=== PATIENT | male | born 2000 | race Caucasian/White ===

== ENCOUNTER 2022-06-03 08:31 | Emergency (ER) | payer OTHER, SELFPAY ==
[2022-06-03 08:38] VITALS: PULSE 80; RESP 18; TEMP 36.6; O2SAT 99; BMI 25.8
--- NOTE | 2022-06-03 09:08 | ED.PSYCH ---
HPI - Psych General Chief Complaint: Psychiatric Symptoms Stated Complaint: insomnia/mental health Time Seen by Provider: 06/03/22 08:50 Source: patient Mode of arrival: Ambulatory Limitations: no limitations History of Present Illness HPI Narrative: This is a 21-year-old male with history of untreated anxiety/depression, insomnia and chronic back pain. Patient states he has had chronic issues for some time [place] that is supposed to be an introductory course to help with mental health, he has tried to follow up with his primary care but they are on maternity leave and he has been told it will be a couple months before he can have any sort of 1 on 1 counseling. Patient states he is had thoughts of harming himself 1 or 2 times a week sometimes as frequently as 3 or 4 he states they are fleeting thoughts with no specific plan or intent to harm himself. Patient states he also has quite a bit issues with sleep and only sleeps a couple hours nightly and then will crash for dark couple nights of this sleep throughout the night and then start the cycle over. He is also had chronic low back pain for long time been seen for this he has been recommended have an MRI as an outpatient, he is had PT through the but has not had further workup. Patient denies any medications. No prior surgeries. No known drug allergies. Patient has never been treated with medications for anxiety, depression or insomnia. Patient states he has a family history dad has some depressive history, he is unsure about his mother. States he has extended family who has had mental health issues including bipolar. Patient speaks with his friend has talked about his issues with. Related Data Previous Rx's Medication Instructions Recorded trazodone 50 mg tablet 50 mg PO BEDTIME PRN insomnia #10 06/03/22 tabs Allergies Allergy/AdvReac Type Severity Reaction Status Date / Time No Known Drug Allergies Allergy Verified 06/03/22 08:38 Review of Systems Review of Systems ROS Unobtainable: All systems reviewed & are unremarkable except as noted in HPI and below Patient History Social History Smoking Status: Current some day smoker Smoking Status: Current some day smoker alcohol intake frequency: holidays/special occasions only Substance Use Type: does not use Exam Narrative Exam Narrative: GENERAL: Alert and oriented x three, male in mild distress HEENT: Head normocephalic, atraumatic, EOMI, pupils reactive, face symmetric, moist mucous membranes NECK: Supple, full range of motion CARDIOVASCULAR: Regular rate and rhythm without murmurs, rubs or gallops. RESPIRATORY: Breath sounds equal bilaterally, no wheezes rales or rhonchi. ABDOMEN: Soft, nontender. Normoactive bowel sounds all 4 quadrants. No guarding or rebound, rigidity, no mass : No CVA tenderness EXTREMITIES: Normal range of motion, no clubbing or edema. Neurovascularly intact NEUROLOGICAL: Cranial nerves II through XII grossly intact. Moving all extremities. Normal gait. SKIN: Warm, dry, no petechiae, no rashes or lesions. PSYCH: Endorses anxiety and depressive thoughts, occasional suicidal thoughts but no intent. Contracts for safety. No homicidal thoughts. Initial Vital Signs Initial Vital Signs: Vital Signs Temperature 97.9 F 06/03/22 08:38 Pulse Rate 80 06/03/22 08:38 Respiratory Rate 18 06/03/22 08:38 Pulse Oximetry 99 06/03/22 08:38 Oxygen Delivery Method 06/03/22 08:38 Course Vital Signs Vital signs: Vital Signs - 8 hr 06/03/22 08:38 Temperature 97.9 F Pulse Rate 80 Respiratory Rate 18 Pulse Oximetry 99 Oxygen Delivery Method Room Air MDM - Psych MDM Narrative Medical decision making narrative: This is a 21-year-old male who presents with complaint of occasional suicidal ideation, depressive/anxiety which has been longstanding as well as insomnia and chronic low back pain which has been persistent but stable. Patient is able to contract for safety, he does not feel that he needs placement at this time and I would feel that he is voluntary. Patient has been attempting to [facility] [employer] and his primary care but has run into barriers in terms of timely treatment and been told at least 4 months before [id number] counseling is available. Patient reached out to the nurse's hotline was referred here and then he reached out to his 1st in his unit who referred him here. After discussion I spoke with our psychiatric social worker supervisor patient can follow up with [facility] so he has some more timely follow-up. He feels that counseling and medication be helpful. Gave him a short course of trazodone to help with his insomnia may be helpful with his depression but return precautions. Discharge Plan Departure Patient Disposition: Home Clinical Impression: Depression, Insomnia Instructions: DI for Insomnia, DI for Suicidal Ideation-Adult Activity Restrictions/Additional Instructions: Please follow-up with [facility] as well as recontact your primary care team to let them know we have initiated some medication and you will need refills to continue. You may take trazodone 1 tablet nightly before sleep. This medication can be sedating. If you have worsening thoughts of harming yourself or others stop this medication. Prescription sent to [facility] pharmacy in [place]. If you're feeling suicidal or having suicidal thoughts, contact the suicide hotline (this is also a self-referral number to set follow-up or you can use the number on the pamphlet provided). . Please return for thoughts of harming yourself or others, if you are having rapidly worsening symptoms or other new or concerning changes. Prescriptions: New trazodone 50 mg tablet 50 mg PO BEDTIME PRN (Reason: insomnia) Qty: 10 0RF Referrals: Sammy Glass DO [Physician] - Elvie Kang MD [Physician] - Visit Report Forms: Patient Portal/API
[2022-06-03 09:51] VITALS: BP 130/70; PULSE 75; RESP 18; O2SAT 98
== END 2022-06-03 09:51 | disposition home or self-care (01) ==
PROVIDERS: Emergency Provider Emergency Medicine
DX: F32.A Depression, unspecified (principal); G47.00 Insomnia, unspecified
CPT/HCPCS: 99282; 99283

== ENCOUNTER 2022-07-04 11:34 | Emergency (ER) | payer OTHER, SELFPAY ==
[2022-07-04 11:50] VITALS: BP 136/70; PULSE 71; RESP 15; TEMP 36.6; O2SAT 98; BMI 27.3
--- NOTE | 2022-07-04 14:39 | ED.BACK ---
HPI - Back Pain/Injury General Chief Complaint: Back Pain/Injury Stated Complaint: Back pain, Thinks pinched nerve Time Seen by Provider: 07/04/22 14:23 Source: patient History of Present Illness HPI Narrative: 22-year-old male presenting with chronic back pain. Patient reports long history of pain localized to the lumbar paraspinal muscles, radiation down the right lower extremity to the foot with intermittent numbness and paresthesias, no weakness. No change in bowel or bladder habits, no incontinence, no fevers, no perineal numbness, difficulty with ambulation. Patient has been on reduced duty with limited lifting at work recently, patient has been intermittently enrolled with PT without significant effect. Patient noted some urinary urgency while at clinic to obtain repeat medication prescriptions, referred to the emergency department for further evaluation. Related Data Previous Rx's Medication Instructions Recorded trazodone 50 mg tablet 50 mg PO BEDTIME PRN insomnia #10 06/03/22 tabs Allergies Allergy/AdvReac Type Severity Reaction Status Date / Time No Known Drug Allergies Allergy Verified 07/04/22 11:50 Review of Systems Review of Systems Narrative: Constitutional, Eyes, ENT, Pulmonary, Cardiovascular, Gastrointestinal, Renal, Endocrine, Genitourinary, Musculoskeletal, Neurologic, Skin, and Psychiatric systems were reviewed and negative unless indicated in the HPI above. Patient History Social History Smoking Status: Current every day smoker Smoking Status: Current every day smoker alcohol intake frequency: holidays/special occasions only Substance Use Type: does not use Exam Narrative Exam Narrative: Vitals reviewed. Nursing note reviewed Constitutional: interactive HENT: Moist mucous membranes EYES: No scleral icterus NECK: no masses CV: Well perfused peripherally, no cyanosis present PULM: Unlabored respirations, symmetric chest rise ABD: Non-distended MS: No gross deformities, no asymmetric edema noted SKIN: Warm and dry. PSYCH: Appropriate affect NEURO: Follows simple commands, moves extremities, interactive with exam, normal heel and toe walk, symmetric strength in the bilateral lower extremities, no ataxia Initial Vital Signs Initial Vital Signs: Vital Signs Temperature 97.9 F 07/04/22 11:50 Pulse Rate 71 07/04/22 11:50 Respiratory Rate 15 07/04/22 11:50 Blood Pressure 136/70 07/04/22 11:50 Pulse Oximetry 98 07/04/22 11:50 Oxygen Delivery Method 07/04/22 11:50 Course Vital Signs Vital signs: Vital Signs - 8 hr 07/04/22 11:50 07/04/22 14:43 Temperature 97.9 F 98.2 F Pulse Rate 71 84 Respiratory Rate 15 15 Blood Pressure 136/70 155/85 H Pulse Oximetry 98 98 Oxygen Delivery Method Room Air Room Air MDM - Back Pain/Injury MDM Narrative Medical decision making narrative: The patient presents with back pain. On presentation, vitals notable for hypertension. Physical exam notable for grossly reassuring cardiac, pulmonary, and abdominal exam. Neurologic exam reassuring without focal deficits. Cauda equina, lumbar radiculopathy, sciatica, MSK strain, functional low back pain. No clear evidence to support a diagnosis of epidural abscess given patient without fevers, no history of IV drug use, duration of symptoms, and revision bedside exam. Patient does not have red flag symptoms on presentation in the ED, low suspicion for occult cauda equina and further evaluation with emergent MRI was deferred. Patient's symptoms seem consistent with lumbar radiculopathy versus sciatica, patient instructed on return precautions, instructed to continue use anti-inflammatory medications as needed, follow-up in the outpatient setting with primary care provider for PT referral and spine surgery follow-up. Return precautions discussed, patient subsequently discharged in stable condition. Discharge Plan Departure Patient Disposition: Home Clinical Impression: Sciatica, Strain of lumbar region Instructions: DI for Back Pain With Sciatica, DI for Back Spasm Activity Restrictions/Additional Instructions: *You have been diagnosed with back pain and sciatica. *What to do: Please continue to use anti-inflammatory medications as needed to control symptoms. Please return to the emergency department if you develop any urinary incontinence, perineal numbness, focal weakness or numbness, increasing difficulty with ambulation. Please follow up in outpatient setting with your primary care provider, given the duration of your symptoms, you should follow-up with a spine physician. *Please follow up with your primary care provider in 2-3 days, call for an appointment. Let them know you were seen in the Emergency Department and that we ask that you be seen in follow up. We will electronically transmit a record of today's note if your PCP is in our system *Return to Emergency Department if you should have any new, worsening or concerning symptoms, such as [fever greater than 101 F, shaking chills, worsening pain, persistent vomiting or other bothersome symptoms Prescriptions: No Action trazodone 50 mg tablet 50 mg PO BEDTIME PRN (Reason: insomnia) Qty: 10 0RF Visit Report Forms: Patient Portal/API
[2022-07-04 14:43] VITALS: BP 155/85; PULSE 84; RESP 15; TEMP 36.8; O2SAT 98
== END 2022-07-04 14:55 | disposition home or self-care (01) ==
PROVIDERS: Emergency Provider Emergency Medicine
DX: M54.9 Dorsalgia, unspecified (principal); M54.31 Sciatica, right side; S39.012A Strain of muscle, fascia and tendon of lower back, initial encounter; X58.XXXA Exposure to other specified factors, initial encounter
CPT/HCPCS: 99281

== ENCOUNTER 2022-10-29 11:20 | Emergency (ER) | payer OTHER, SELFPAY ==
[2022-10-29 11:53] VITALS: BP 112/61; PULSE 97; RESP 14; TEMP 36.7; O2SAT 98; BMI 23.6
--- NOTE | 2022-10-29 12:46 | ED_ITS ---
HPI - Back Pain/Injury <Niyah Smith PA-C - Last Filed: 11/06/22 20:14> General Chief Complaint: Back Pain/Injury Stated Complaint: lots of back pain ongoing issue 3years Time Seen by Provider: 10/29/22 12:18 Source: patient History of Present Illness HPI Narrative: 22-year-old male presents to the ED for worsening lower back pain. Patient states that he has had lower back pain for the past 3 years that is persistent and worsening over time. Patient states he has been through physical therapy with little relief. Patient is in the , has been unable to obtain advanced imaging to further evaluate his symptoms. Patient states that the pain is in the lower back, more painful to the left of the spine. Patient also states that he is experiencing some numbness, tingling in his right foot. Patient denies weakness. Patient denies fever, chills, IVDU, saddle paresthesias, urinary hesitancy, urinary incontinence, bowel incontinence. Related Data Previous Rx's Medication Instructions Recorded trazodone 50 mg tablet 50 mg PO BEDTIME PRN insomnia #10 06/03/22 tabs Allergies Allergy/AdvReac Type Severity Reaction Status Date / Time No Known Drug Allergies Allergy Verified 10/29/22 11:59 Review of Systems <Niyah Smith PA-C - Last Filed: 11/06/22 20:14> Review of Systems ROS Unobtainable: All systems reviewed & are unremarkable except as noted in HPI and below Constitutional Constitutional: Denies chills, Denies fatigue, Denies fever(s), Denies frequent falls, Denies lethargy and Denies weakness Eyes Eyes: Denies change in vision, Denies eye discharge, Denies irritation and Denies loss of vision ENT Ears, Nose, Mouth, and Throat: Denies change in voice, Denies dizziness, Denies neck pain, Denies sore throat and Denies throat swelling Cardiovascular Cardiovascular: Denies chest pain, Denies irregular heart rhythm, Denies lightheadedness, Denies palpitations, Denies dyspnea, Denies dyspnea on exertion and Denies orthopnea Respiratory Respiratory: Denies cough, Denies dyspnea, Denies dyspnea on exertion and Denies wheezing Gastrointestinal Gastrointestinal: Denies abdominal pain, Denies change in bowel habits, Denies diarrhea, Denies nausea and Denies vomiting Genitourinary Genitourinary: Denies hematuria, Denies flank pain, Denies urinary incontinence and Denies urinary urgency Musculoskeletal Musculoskeletal: Reports back pain, Denies muscle weakness, Denies neck pain, Reports numbness and Reports tingling Integumentary/Breasts Skin/Breast: Denies pruritus, Denies erythema, Denies rash and Denies wounds Neurologic Neurologic: Denies behavioral changes, Denies confusion, Denies dizziness, Denies frequent falls, Denies loss of vision, Reports numbness, Reports tingling and Denies weakness Psychiatric Psychiatric: Denies anxiety, Denies behavioral changes, Denies confusion, Denies depression, Denies homicidal ideation and Denies suicidal ideation Endocrine Endocrine: Denies fatigue, Denies flushing and Denies palpitations Hematologic/Lymphatic Hematologic/Lymphatic: Denies easy bruising Allergic/Immunologic Allergic/Immunologic: Denies urticaria, Denies throat swelling and Denies wheezing Patient History <Niyah Smith PA-C - Last Filed: 11/06/22 20:14> Social History Smoking Status: Former smoker Smoking Status: Former smoker alcohol intake frequency: holidays/special occasions only Substance Use Type: does not use Exam <Niyah Smith PA-C - Last Filed: 11/06/22 20:14> Narrative Exam Narrative: Const General:?cooperative, healthy appearing and comfortable [facility] Head:?normal to inspection Ears:?hearing grossly normal bilaterally Nose:?external nose normal Face and sinus:?normal facial exam and sinuses nontender Mouth:?oral mucosae normal Throat:?posterior oropharynx normal Eyes General:?appearance normal, both eyes and all related structures Neck Neck:?normal visual inspection and no lymphadenopathy noted Resp Effort & Inspection:?normal respiratory effort Auscultation:?clear to auscultation bilaterally Cardio Rate:?regular rate Rhythm:?regular rhythm Musculoskeletal No midline tenderness to palpation. No paraspinal tenderness to palpation. Strength and sensation is intact. Full range of motion. Patient is neurovascularly intact. Neuro General:?patient alert, patient awake and patient oriented x3 Initial Vital Signs Initial Vital Signs: Vital Signs Temperature 98.1 F 10/29/22 11:53 Pulse Rate 97 H 10/29/22 11:53 Respiratory Rate 14 10/29/22 11:53 Blood Pressure 112/61 10/29/22 11:53 Pulse Oximetry 98 10/29/22 11:53 Oxygen Delivery Method Room Air 10/29/22 11:53 <Dewayne Valentine DO - Last Filed: 11/12/22 07:17> Initial Vital Signs Initial Vital Signs: Vital Signs Temperature 98.1 F 10/29/22 11:53 Pulse Rate 97 H 10/29/22 11:53 Respiratory Rate 14 10/29/22 11:53 Blood Pressure 112/61 10/29/22 11:53 Pulse Oximetry 98 10/29/22 11:53 Oxygen Delivery Method Room Air 10/29/22 11:53 Course <Niyah Smith PA-C - Last Filed: 11/06/22 20:14> Vital Signs Vital signs: Vital Signs - 8 hr 10/29/22 11:53 Temperature 98.1 F Pulse Rate 97 H Respiratory Rate 14 Blood Pressure 112/61 Pulse Oximetry 98 Oxygen Delivery Method Room Air <Dewayne Valentine DO - Last Filed: 11/12/22 07:17> Vital Signs Vital signs: Vital Signs - 8 hr 10/29/22 11:53 Temperature 98.1 F Pulse Rate 97 H Respiratory Rate 14 Blood Pressure 112/61 Pulse Oximetry 98 Oxygen Delivery Method Room Air MDM - Back Pain/Injury <CARMITA Enciso Last Filed: 11/06/22 20:14> MDM Narrative Medical decision making narrative: 22-year-old male presents to the ED for worsening lower back pain. Concern for disc herniation versus musculoskeletal sprain/strain versus other. Given that patient has had symptoms for 3 years, is refractory to PT, is now experiencing numbness, tingling, will obtain MRI. No acute findings on MRI. Discussed findings with patient. Patient agrees to follow-up with PCP and physical therapy. ED return precautions were discussed with patient. Patient verbalized understanding. Discharge Plan Departure Patient Disposition: Home Clinical Impression: Lower back pain Instructions: DI for Low Back Pain Activity Restrictions/Additional Instructions: You were evaluated in the ED today for lower back pain. Your MRI showed some disc bulges in L4-L5 and L5-S1 but no emergent findings. Please follow-up with your primary care provider an ortho specialist for further evaluation. You may take ibuprofen and muscle relaxants for the pain. Return to the ED if you experience any weakness your legs, numbness in the genital region, difficulties urinating. Prescriptions: No Action trazodone 50 mg tablet 50 mg PO BEDTIME PRN (Reason: insomnia) Qty: 10 0RF Referrals: Provider,Enrique ESTRADA [Primary Care Provider] - Stand Alone Forms: Patient Portal/API <Dewayne Valentine DO - Last Filed: 11/12/22 07:17> Cosign ED Attending Cossundarature Attestation: I was immediately available in the department for consultation. This documentation has been reviewed and I agree with assessment and plan. Supervised by Dewayne Valentine DO
--- NOTE | 2022-10-29 12:49 | DI.MRI.S_ITS ---
PROCEDURE: MR LUMBAR SPINE WO CON INDICATIONS: Lower back pain TECHNIQUE: Noncontrast sagittal T1 spin echo and T2 fast echo, sagittal STIR, and T2 fast spin echo through the lumbar spine. In cases with scoliosis, additional coronal T2 fast spin echo may be performed. COMPARISON: None. FINDINGS: Image quality: This examination is limited by involuntary motion artifact. Alignment and Curvature: There is normal bony alignment. Bone Marrow: Marrow is of normal overall signal. No acute vertebral body compression fractures. Spinal Cord: Conus medullaris terminates at the L1 level. Visualized cord demonstrates normal signal and size. Paraspinous Soft Tissues: No paravertebral masses. T12-L1: Normal appearance. L1-L2: Normal appearance. L2-L3: Normal appearance. L3-L4: No significant abnormality is seen. L4-L5: The disc height and disk signal are well-preserved. Mild generalized disc bulge is seen. Mild facet joint hypertrophy is seen. Mild to moderate bilateral neural foraminal narrowing can be seen. Minimal central canal narrowing is seen. L5-S1: The disc height and disk signal are well-preserved. Mild generalized disc bulge is seen. Moderate bilateral neural foraminal narrowing is seen. Minimal central canal narrowing is seen. IMPRESSION: Premature lower lumbar spine degenerative changes are seen. Dictated by: Hussein Parikh M.D. on 10/29/2022 at 18:08 Approved by: Hussein Parikh M.D. on 10/29/2022 at 18:10
[2022-10-29 19:27] VITALS: BP 122/78; PULSE 70; RESP 15
== END 2022-10-29 19:36 | disposition home or self-care (01) ==
PROVIDERS: Emergency Provider Student in an Organized Health Care Education/Training Program
DX: M54.50 Low back pain, unspecified (principal); R20.0 Anesthesia of skin
CPT/HCPCS: 72148; 99283